=== PATIENT | female | born 1945 | race Caucasian/White ===

== ENCOUNTER 2020-08-18 05:36 | Observation (INO) ==
[2020-08-12 12:24] LABS: Basophils # 0.1 10*3/uL (0.0-0.2); Basophils % 0.7 % (0.0-0.8); Eosinophils # 0.2 10*3/uL (0.0-0.87); Eosinophils % 2.5 % (0.00-10.9); Hematocrit 43.6 VOL% (35.7-47.0); Hemoglobin 13.9 GM/DL (12.0-16.0); Immature Granulocytes % 0.4 %; Immature Granulocytes Absolute 0.03 #; Lymphocytes % 35.5 % (21.3-54.2); Mean Corpuscular HGB Conc 31.9 GM/DL (32-36); Mean Platelet Volume 11.9 FL (9.6-12.0); Monocytes % 9.8 % (1.7-12.7); Neutrophils % 51.1 % (38.7-73.9); Platelet Count 300 T/CUMM (130-400); Red Blood Count 4.79 MC/CUMM (3.8-5.5); White Blood Count 8.5 T/CUMM (4-12)
[2020-08-12 12:36] LABS: Potassium 3.8 MMOL/L (3.5-5.1)
[2020-08-18] MEDS ORDERED: ROCURONIUM 50 MG/5 ML VIAL IV ONE (06:11)
[2020-08-18] MEDS ORDERED: propofoL 200 MG/20 ML VIAL IV ONE (06:11)
[2020-08-18] MEDS ORDERED: LIDOCAINE 2% 5 ML VIAL ONE (06:11)
[2020-08-18] MEDS ORDERED: SUCCINYLCHOLINE 200 MG/10 ML VIAL ONE (06:11)
[2020-08-18] MEDS ORDERED: fentaNYL 100 MCG/2 ML VIAL ONE (06:11)
[2020-08-18] MEDS ORDERED: BUPIVACAINE MPF 0.25% 30 ML VIAL ONE (06:35)
[2020-08-18] MEDS ORDERED: TISSUE ADHESIVE 1 EACH APPLICATOR TOP ONE (06:35)
[2020-08-18] MEDS ORDERED: LIDOCAINE 1%/EPI INJ 20 ML VIAL ONE (06:35)
[2020-08-18] MEDS ORDERED: LACTATED RINGERS 1,000 ML IV SCH (07:00)
[2020-08-18] MEDS ORDERED: SCOPOLAMINE 1.5 MG PATCH TRANSDERM ONE (07:25)
[2020-08-18] MEDS ORDERED: ePHEDrine 50 MG/ML VIAL ONE (07:56)
[2020-08-18] MEDS ORDERED: ONDANSETRON 4 MG/2 ML VIAL ONE (08:27)
[2020-08-18] MEDS ORDERED: SEVOFLURANE 1 UNIT/15 MINUTE INH ONE ×3 (08:28→09:22)
[2020-08-18] MEDS ORDERED: LACTATED RINGERS 1,000 ML IV ONE (08:28)
[2020-08-18] MEDS ORDERED: MORPHINE 4 MG/1 ML VIAL IV PRN (09:15)
[2020-08-18] MEDS ORDERED: ONDANSETRON 4 MG/2 ML VIAL IV PRN ×2 (09:15→09:19)
[2020-08-18] MEDS ORDERED: HYDROmorphone 2 MG/1 ML VIAL IV PRN (09:19)
[2020-08-18] MEDS ORDERED: MORPHINE 10 MG/1 ML VIAL IV PRN (09:46)
[2020-08-18] MEDS ORDERED: ALUM/MAG/SIMETH/LIDO VISC 1:1 30 ML BOTTLE PO ONE ×3 (10:03→10:16)
[2020-08-18] MEDS ORDERED: LORazepam 2 MG/1 ML VIAL IV ONE (10:16)
[2020-08-18] MEDS ORDERED: NITROGLYCERIN SL 0.4 MG TABLET SL PRN (10:39)
[2020-08-18] MEDS ORDERED: ENOXAPARIN 100 MG/ML SYRINGE SUBCUT ONE (11:04)
[2020-08-18 12:23] LABS: Basophils # 0.1 10*3/uL (0.0-0.2); Basophils % 0.5 % (0.0-0.8); Eosinophils # 0.1 10*3/uL (0.0-0.87); Eosinophils % 0.8 % (0.00-10.9); Hematocrit 39.4 VOL% (35.7-47.0); Hemoglobin 12.5 GM/DL (12.0-16.0); Immature Granulocytes % 0.3 %; Immature Granulocytes Absolute 0.04 #; Lymphocytes % 17.2 % (21.3-54.2); Mean Corpuscular HGB Conc 31.7 GM/DL (32-36); Mean Corpuscular Volume 89.5 FL (87-102); Mean Platelet Volume 10.7 FL (9.6-12.0); Monocytes % 6.8 % (1.7-12.7); Neutrophils % 74.4 % (38.7-73.9); Platelet Count 245 T/CUMM (130-400); Red Cell Distribution Width 14.6 % (9.3-17.3); White Blood Count 11.6 T/CUMM (4-12)
[2020-08-18 12:45] LABS: Calcium 9.2 MG/DL (8.5-10.1); Osmolality,Calculated 279.3 MOS/KG (273-304); Potassium 3.6 MMOL/L (3.5-5.1)
[2020-08-19 06:13] LABS: Calcium 8.5 MG/DL (8.5-10.1); Osmolality,Calculated 279.3 MOS/KG (273-304); Potassium 3.7 MMOL/L (3.5-5.1)
[2020-08-19 06:16] LABS: Risk Ratio 3.36; VLDL CHOLESTEROL 30.4 MG/DL
[2020-08-19] MEDS: METOPROLOL TARTRATE 25 MG TABLET PO SCH (08:51)
[2020-08-19] MEDS: FUROSEMIDE 40 MG TABLET PO SCH (08:51)
[2020-08-19] MEDS: FAMOTIDINE 20 MG TABLET PO SCH ×2 (08:51→20:01)
[2020-08-19] MEDS: PANTOPRAZOLE 40 MG TABLET PO SCH (08:52)
[2020-08-19] MEDS: amLODIPine 5 MG TABLET PO SCH (08:52)
[2020-08-20 07:33] VITALS: BP 133/71
[2020-08-20] MEDS: FAMOTIDINE 20 MG TABLET PO SCH (08:12)
[2020-08-20] MEDS: PANTOPRAZOLE 40 MG TABLET PO SCH (08:12)
[2020-08-20] MEDS: METOPROLOL TARTRATE 25 MG TABLET PO SCH (08:12)
[2020-08-20] MEDS: FUROSEMIDE 40 MG TABLET PO SCH (08:12)
[2020-08-20] MEDS: amLODIPine 5 MG TABLET PO SCH (08:12)
== END 2020-08-20 10:57 | disposition home or self-care (01) ==
LOC: N.OR 05:36 → N.SDSINP 05:36 → N.TELEN 05:36 → N.SDSINP 05:39 → N.TELEN 13:18
PROVIDERS: ADMIT Surgery; ATTEND Surgery